=== PATIENT | female | born 1925 | race Caucasian/White ===

== ENCOUNTER 2016-02-24 23:40 | Inpatient (IN) | payer MEDICARE, OTHER ==
--- NOTE | 2016-02-25 00:10 | ERNOTE ---
Medical Problem HPI - Narrative Date of Service: 02/25/16 - General Chief Complaint: General Assessment Time Seen by Provider: 02/25/16 00:10 Source: patient, EMS notes reviewed, assisted records Exam Limitations: no limitations - Immun/Allergies/Home Medications Immunizations: IMMUNIZATION HX Immunizations Up to Date Yes History of Influenza Vaccine Yes Hx Pneumococcal Vaccination Yes reviewed medication and immunizations per assisted list. Allergies/Adverse Reactions: Allergies alendronate sodium [From Fosamax] Adverse Reaction (Intermediate, Verified 02/16 22:02) ESOPHAGUS IRRITATION metoclopramide HCl [From Reglan] Adverse Reaction (Intermediate, Verified 22:02) TREMOR Penicillins Adverse Reaction (Mild, Verified 02/17/16 22:02) RASH Home Medications: HOME MEDICATIONS Acetaminophen [Tylenol] 650 mg PO Q6H PRN 02/17/16 [Last Taken Unknown] Brinzolamide [Azopt 1% Ophthalmic Suspension] 1 drop EACHEYE TID 02/17/16 [Last Taken Unknown] Calcium Carbonate [Tums] 500 mg PO DAILY 02/17/16 [Last Taken Unknown] Carvedilol [Coreg] 6.25 mg PO BID 02/17/16 [Last Taken Unknown] Cholecalciferol (Vitamin D3) [Vitamin D3] 2,000 unit PO DAILY 02/17/16 [Last Taken Unknown] DULoxetine HCL [Cymbalta] 30 mg PO DAILY 02/17/16 [Last Taken Unknown] Digoxin [Lanoxin] 0.125 mg PO DAILY 02/17/16 [Last Taken Unknown] Fluticasone Propionate [Flonase Allergy Relief] 2 sprays NS DAILY 02/17/16 [ Last Taken Unknown] Furosemide [Lasix] 80 mg PO TID 02/17/16 [Last Taken Unknown] Hydrochlorothiazide [Hydrodiuril] 25 mg PO TID 02/17/16 [Last Taken Unknown] Latanoprost [Xalatan] 1 drop EACHEYE HS 02/17/16 [Last Taken Unknown] Multivitamin/Ferrous Sulfate [One-Daily Aqgsl-Emg-Sauw Tab] 1 tab PO DAILY 02/16 [Last Taken Unknown] Poly Iron Forte Cap 1 tab PO BID 02/17/16 [Last Taken Unknown] Polyethylene Glycol 3350 [Miralax] 17 gm PO DAILY PRN 02/17/16 [Last Taken Unknown] Simvastatin [Zocor] 20 mg PO HS 02/17/16 [Last Taken Unknown] Spironolactone [Aldactone] 1 tab PO TID 02/17/16 [Last Taken Unknown] Albuterol Sulfate [Albuterol Sulfate 2.5 MG/0.5ML] 2.5 mg IH TIDRT vial.neb [Last Taken Unknown] Aspirin [Aspirin EC] 81 mg PO DAILY #1 tablet. 02/18/16 [Last Taken Unknown] - Pain Score Pain Score #1 Pain Score: 1 - minimal pain despite recent fall - History of Present History Narrative: Patient here via EMS for evaluation of wooziness, weakness and fall yesterday with injury / superficial skin tear to the right elbow. Patient with nausea, generalized weakness, no active chest pain, neck pain, hip pain or knee pain. EKG reviewed done at 00:19 rate of 46, first degree AV block, atrial fibrillation and compared with prior from 02/16 afib with rate of [address] twave changes Date (Duration): 02/24/16 Time (Timing): 20:00 Timing: getting worse Severity: moderate Modifying Factors - (Improves): Present: movement, rest Modifying Factors - (Worsens): Present: other - unclear why she is worsening, known chronic kidney disease had recent worsening renal function Review of Systems - Review of Systems Constitutional: Present: recent illness, weakness, fatigue, malaise EYE: Present: no symptoms reported ENT: Present: no symptoms reported, other - dry mouth Respiratory: Present: no symptoms reported Cardiology: Present: no symptoms reported Gastrointestinal/Abdominal: Present: no symptoms reported - except bowels don't move, no melena , constipation Genitourinary: Present: no symptoms reported Musculoskeletal: Present: joint pain - right elbow s/p skin tear an contusion Neurological: Present: no symptoms reported, dizziness/light-headedness, weakness, pre-existing deficit. Absent: emotional problems, headache Endocrine: Present: no symptoms reported Hematologic/Lymphatic: Present: easy bruising, easy bleeding Psych: Present: no symptoms reported All Other Systems: All systems neg except as marked - Narrative Narrative: all social history, family history, and past medical history reviewed as recorded. - Patient's Past Medical History Patient History - Medical: Arthritis, GERD, Osteoporosis, Rheumatoid Arthritis Patient History - Cardiac/Respiratory: No pertinent hx, Atrial Fibrillation, CVA /Stroke, Deep Vein Thrombosis, Hypertension, Pulmonary Embolism, Other - pulmonary hypertension Patient History - Cancer: No Hx of Cancer Patient History - Surgical Procedures: Appendectomy, Cholecystectomy, Colonoscopy, EGD, Hysterectomy, Other Patient History - Other: None LMP (females 10-50): Menopausal - Family History Father Family History - Medical: , No pertinent hx Family History - Cancer: No Hx of cancer Mother Family History - Medical: , No pertinent hx Family History - Cardiac/Respiratory: No pertinent hx Family History - Cancer: No Hx of cancer - Social History Living Situations: assisted living Does anyone smoke in the home?: No Smoking Status: Never smoker Alcohol Use: none Drug Use: none - Immunizations Immunizations Up to Date: Yes - Td current per assisted record Hx Pneumococcal Vaccination: More Information Required to Determine History of Influenza Vaccine: More Information Required to Determine ED Progress - Results and Orders Patient's Lab Results:: I have reviewed the patient's lab results. Results and Orders: Critical potassium of 1.9, elevated BNP & hyponatremia potassium will be replaced both orally and IV KCL 10 meq x 2 IV bags, she has fragile veins will need IV fluids running at tko and running KCL at SLOWER rate of 50 ml per hr. - Vital Signs Patient's Vital Signs:: I have reviewed the patient's vital signs. Vital Signs: Vital Signs 02/24/16 23:41 Pulse Rate 48 L Respiratory 16 Rate Blood Pressure 114/41 O2 Sat by Pulse 97 Oximetry - EKG EKG read: Interp. by me - X-Ray X-Ray #1 X-Ray: chest Interpretation: Interp. by me, Reviewed by me X-ray Comments: report noted no acute change from prior ekg no acute ijfiltrate. Cardiac silhouette enlarged. - Progress/Reassessment Chief Complaint: General Assessment Progress:: Improved - Transfer of Care Expected Disposition: Admit - case Discussed with Trinity Palumbo for admission orders. Plan - Plan Plan: 1. Patient has severe hypokalemia, she is will need to be admitted to stabilize this and her other electrolyte abnormalities. 2. Severe hyponatremia, 3. chronic heart failure 4. Acute on chronic kidney failure Departure - Departure Clinical Impression: Hyponatremia syndrome, Hypokalemia, Acute on chronic renal insufficiency, Diastolic dysfunction Condition: Fair
[2016-02-25 00:25] LABS: Hematocrit 32.3 % (37.0-47.0); Hemoglobin 11.6 gm/dL (12.5-16.0); Mean Cell Volume 84.6 fl (78-100); Mean Corpuscular Hemoglobin 30.4 pg (27-31); Mean Corpuscular Hgb Conc 35.9 g/dl (32-36); Mean Platelet Volume 8.9 fl (6.0-9.5); Neutrophil # 5.2 K/mm3 (1.3-6.0); Neutrophil % 65.1 % (42-75.0); Platelet Count 249 K/mm3 (150-450); Red Blood Count 3.82 M/mm3 (4.2-5.4); Red Cell Distribution Width 15.2 % (11.5-14.0)
[2016-02-25 00:42] LABS: Prothrombin Time (Patient) 18.4 Seconds (9.4-11.4)
[2016-02-25 00:43] LABS: INR 1.77 INR (0.90-1.10); Partial Thrombolplastin Time 46.5 Seconds (24-32)
[2016-02-25 00:51] LABS: Troponin I 0.063 ng/ml (0.00-0.10)
[2016-02-25 00:55] LABS: Albumin * 3.1 gm/dl (3.4-5.0); Anion Gap 11.4 mmol/L (6.8-13.8); Bilirubin, Total 1.5 mg/dL (0.0-1.1); Ca. Corrected For Albumin 9.5 mg/dL (8.4-10.2); Calcium * 9.1 mg/dL (7.9-10.9); Carbon Dioxide 32.5 mmol/L (24-32.6); Digoxin 1.2 ng/mL (0.5-2.0)
[2016-02-25 00:56] LABS: Potassium 1.9 mmol/L (3.4-4.6)
[2016-02-25] MEDS ORDERED: POTASSIUM CHLORIDE 20 MEQ TABLET.SA PO ONE (01:13)
[2016-02-25] MEDS ORDERED: POTASSIUM CHLORIDE 100 ML IV ONE ×2 (01:16→04:30)
[2016-02-25] MEDS ORDERED: NORMAL SALINE 1,000 ML IV PRN (01:17)
[2016-02-25] MEDS ORDERED: POTASSIUM CHLORIDE 20 MEQ TABLET.SA ONE (01:23)
[2016-02-25] MEDS ORDERED: POLYETHYLENE GLYCOL 3350 119 GM BTL PO PRN (04:51)
--- NOTE | 2016-02-25 05:26 | HP ---
<Carmel Palumbo - Last Filed: 02/25/16 06:37> Chief Complaint - Chief Complaint Date of Service: 02/25/16 Time of Service: 04:44 Chief Complaint: weakness History of Present Illness: Pt is an 89 year old WF pt of Dr. Gonzalez who presented to [facility] ER with complaints of weakness. PMH is significant for: afib, CRF, pulm HTN, GERD, HTN, RA, OP, and previous DVT. Patient experienced a fall yesterday and suffered a right elbow skin tear. She states this was due to her being so weak. Denies any other associated injuries from this fall. She also states that she is SOB, however she displays no s/s of any respiratory distress. Denies fever/chills, recent illness, n/v/d, CP, or palpations. In the ER work up revealed EKG with rate of 46, first degree AVB, atrial fibrillation. Laboratory findings were significant for: K+ 1.9, H/H 11.6/32.3, Na+ 125, Chloride 83, BUN/Creat 57/ 1.90. She will be admitted for IV potassium and sodium replacement, serial labs , continuous cardiac monitoring. - Patient's Past Medical History Patient History - Medical: Arthritis, GERD, Osteoporosis, Rheumatoid Arthritis Patient History - Cardiac/Respiratory: No pertinent hx, Atrial Fibrillation, CVA /Stroke, Deep Vein Thrombosis, Hypertension, Pulmonary Embolism, Other - pulmonary hypertension Patient History - Cancer: No Hx of Cancer Patient History - Surgical Procedures: Appendectomy, Cholecystectomy, Colonoscopy, EGD, Hysterectomy, Other Patient History - Other: None LMP (females 10-50): Menopausal - Family History Father Family History - Medical: , No pertinent hx Mother Family History - Medical: , No pertinent hx - Social History Living Situations: assisted living Does anyone smoke in the home?: No Smoking Status: Never smoker Have you smoked in the past 12 months: No Do you dip or chew tobacco: No Patient requests Smoking Cessation Consult: No Initiate information on Smoking Cessation: No Alcohol Use: none Drug Use: none - Immunizations Immunizations Up to Date: Yes Hx Pneumococcal Vaccination: Yes History of Influenza Vaccine: Yes Review Of Systems (GEN) - Review of Systems Generalized/Overall Review: Present: Weakness, Fatigue EENTM: Present: No Symptoms Reported Respiratory: Present: Shortness of Breath - pt resting comfortably in be without s/s of respiratory distress. Oxygen saturation >93% Cardiac: Present: No Symptoms Reported Abdominal: Present: No Symptoms Reported Genitourinary: Present: No Symptoms Reported Musculoskeletal: Present: No Symptoms Reported Neurological: Present: Weakness Skin: Present: Dryness, Bruising Endocrine: Present: No Symptoms Reported Allergies/Adverse Reactions: Allergies Allergy/AdvReac Type Severity Reaction Status Date / Time alendronate sodium AdvReac Intermediate ESOPHAGUS Verified 02/17/16 22:02 [From Fosamax] IRRITATION metoclopramide HCl AdvReac Intermediate TREMOR Verified 02/17/16 22:02 [From Reglan] Penicillins AdvReac Mild RASH Verified 02/17/16 22:02 Home Medications: HOME MEDICATIONS Acetaminophen [Tylenol] 650 mg PO Q6H PRN 02/17/16 [Last Taken Unknown] Brinzolamide [Azopt 1% Ophthalmic Suspension] 1 drop EACHEYE TID 02/17/16 [Last Taken Unknown] Calcium Carbonate [Tums] 500 mg PO DAILY 02/17/16 [Last Taken Unknown] Carvedilol [Coreg] 6.25 mg PO BID 02/17/16 [Last Taken Unknown] Cholecalciferol (Vitamin D3) [Vitamin D3] 2,000 unit PO DAILY 02/17/16 [Last Taken Unknown] DULoxetine HCL [Cymbalta] 30 mg PO DAILY 02/17/16 [Last Taken Unknown] Digoxin [Lanoxin] 0.125 mg PO DAILY 02/17/16 [Last Taken Unknown] Fluticasone Propionate [Flonase Allergy Relief] 2 sprays NS DAILY 02/17/16 [ Last Taken Unknown] Furosemide [Lasix] 80 mg PO TID 02/17/16 [Last Taken Unknown] Hydrochlorothiazide [Hydrodiuril] 25 mg PO TID 02/17/16 [Last Taken Unknown] Latanoprost [Xalatan] 1 drop EACHEYE HS 02/17/16 [Last Taken Unknown] Multivitamin/Ferrous Sulfate [One-Daily Vmhdd-Pep-Xulm Tab] 1 tab PO DAILY 02/16 [Last Taken Unknown] Poly Iron Forte Cap 1 tab PO BID 02/17/16 [Last Taken Unknown] Polyethylene Glycol 3350 [Miralax] 17 gm PO DAILY PRN 02/17/16 [Last Taken Unknown] Simvastatin [Zocor] 20 mg PO HS 02/17/16 [Last Taken Unknown] Spironolactone [Aldactone] 1 tab PO TID 02/17/16 [Last Taken Unknown] Albuterol Sulfate [Albuterol Sulfate 2.5 MG/0.5ML] 2.5 mg IH TIDRT vial.neb [Last Taken Unknown] Aspirin [Aspirin EC] 81 mg PO DAILY #1 tablet. 02/18/16 [Last Taken Unknown] Exam - Exam Vital Signs: Vital Signs - Last Taken Temp 36.5 C 02/25/16 01:32 Pulse 63 02/25/16 03:20 Resp 16 02/25/16 02:28 BP 119/46 02/25/16 02:28 Pulse Ox 97 RA 02/25/16 02:28 Constitutional: Present: Alert, Oriented x3, Cooperative, No distress, Elderly, Thin and frail ENT Exam: Present: hearing grossly normal, dry mucous membranes Eye Exam: bilateral eye: normal inspection, PERRL Respiratory: Present: chest non-tender, normal breath sounds, no respiratory distress, no accessory muscle use, decreased breath sounds Cardiovascular/Chest: Present: normal peripheral pulses, no chest tenderness, no edema, no murmur, irregularly irregular Peripheral Pulses: dorsalis-pedis (R): 2+, dorsalis-pedis (L): 2+, radial (R): 2 +, radial (L): 2+ Abdomen: Present: Normal bowel sounds, soft, nontender, nondistended Extremity: Present: normal range of motion, non-tender, normal inspection, no pedal edema, no calf tenderness, normal capillary refill Skin Exam: Present: normal color, warm/dry, no cyanosis, other - scattered eccymosis. Skin tear to right elbow Neurologic: Present: alert, normal mood/affect, oriented x 3 Appearance: Present: appropriate appearance, appropriate insight, neat Eye contact: Present: cooperative, good eye contact, normal speech Thoughts: Present: normal thought pattern, no apparent hallucination Diagnostic Studies: Laboratory Results Laboratory Tests 02/25/16 02/25/16 02/25/16 00:15 00:15 00:15 WBC 8.0 Hgb 11.6 L Hct 32.3 L Plt Count 249 PT 18.4 H INR (Anticoag Therapy) 1.77 H PTT ([place]) 46.5 H Sodium 125 L Potassium 1.9 L* D Chloride 83 L BUN 57 H Creatinine 1.90 H BUN/Creatinine Ratio 30.0 H Random Glucose 146 H Total Bilirubin 1.5 H Troponin I 0.063 B-Natriuretic Peptide 3212 H Digoxin 1.2 D Assessment/Plan - Assessment/Plan (1) Hypokalemia Assessment: Pt on 80mg PO lasix daily without any supplementation. From previous labs, looks like it has progressively gone down over the past few days. Will order IV and PO replacement. Place on continuous telemetry to monitor for any arrhythmias , EKG afib with 1*AVB, rate of 46. Dig level within normal limits. Will hold betablockers and dig to prevent further bradycardia while hypokalemic. Hold lasix given acute renal injury. Repeat labs at 0615. -CMP at 0615 -80meq total PO potassium -10meq IV potassium x2 -Continuous telemetry monitoring -Hold Coreg Problem: Acute (2) Hyponatremia Assessment: Pt with worsening hyponatremia over the past three days. 125 on presentation to ER, pt symptomatic with muscle weakness, however no AMS. Unsure etiology, could be from CHF, given this will slowly correct with normal saline at 80ml/hr. BNP 3212 on admission. -MIVF NS with 20Meq KCL @80ml/hr Problem: Acute (3) Acute kidney injury Assessment: Baseline creat around 1.6, admission BUN/Creat 57/1.90. Although elevated from baseline, has improved since January values of 2.0 and above. Likely due to over diuresis. Will gently hydrate with IVF -MIVF NS w 20KCL @80ml/hr -CMP in am -Hold lasix, spironolactone, and HTCZ for now to prevent further kidney damage Problem: Acute (4) A-fib Assessment: Stable. Rate has improved since admission to floor, 64bmp currently. 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 Given hypokalemia, renal impairment, and bradycardia will hold digoxin for now. -Continuous telemetry -Hold dig -Repeat echo Problem: Chronic QualifierTitle: Atrial fibrillation type: chronic Qualified Code(s): I48.2 - Chronic atrial fibrillation (5) GERD (gastroesophageal reflux disease) Assessment: Stable Problem: Chronic (6) HTN (hypertension) Assessment: Stable. Given renal impairment and electrolyte abnormalities will hold hydrochlorthiazide, lasix, and spironolactone to prevent further damage. Monitor fluid status closely given history of CHF. -Hold lasix, HTCZ, and spironolactone -Limit nephrotoxic drugs -VS Q4H Problem: Chronic (7) HLD (hyperlipidemia) Assessment: Stable, continue Zocor 20mg HS Problem: Acute (8) Diastolic dysfunction Assessment: Last echo completed 2013, will need to repeat this admission. -Repeat echo -Strict I/O -Daily wt -SCD to lower extremities Problem: Chronic <Rohan Sandoval - Last Filed: 02/25/16 17:05> Immunizations: IMMUNIZATION HX Immunizations Up to Date Yes: Td current per [facility] record History of Influenza Vaccine More Information Required Hx Pneumococcal Vaccination More Information Required Exam - Exam Vital Signs: Vital Signs - Last Taken Temp 36.3 C L 02/25/16 10:01 Pulse 62 02/25/16 15:00 Resp 16 02/25/16 10:01 BP 109/41 02/25/16 10:01 Pulse Ox 93 02/25/16 10:01 Diagnostic Studies: Laboratory Results WBC 8.0 K/mm3 (4.0-10.5) 02/25/16 00:15 RBC 3.82 M/mm3 (4.2-5.4) L 02/25/16 00:15 Hgb 11.6 gm/dL (12.5-16.0) L 02/25/16 00:15 Hct 32.3 % (37.0-47.0) L 02/25/16 00:15 MCV 84.6 fl (78-100) 02/25/16 00:15 MCH 30.4 pg (27-31) 02/25/16 00:15 MCHC 35.9 g/dl (32-36) 02/25/16 00:15 RDW 15.2 % (11.5-14.0) H 02/25/16 00:15 Plt Count 249 K/mm3 (150-450) 02/25/16 00:15 MPV 8.9 fl (6.0-9.5) 02/25/16 00:15 Immature Gran % (Auto) 1.40 % (0.001-0.429) H 02/25/16 00:15 Immature Gran # (Auto) 0.11 K/mm3 (0.000-0.0310) H 02/25/16 00:15 Neutrophils % 65.1 % (42-75.0) 02/25/16 00:15 Lymphocytes % 18.6 % (20-51) L 02/25/16 00:15 Monocytes % 14.0 % (0.0-9) H 02/25/16 00:15 Eosinophils % 0.7 % (0.0-3.0) 02/25/16 00:15 Basophils % 0.2 % (0.0-1.0) 02/25/16 00:15 Nucleated RBC % 0.0 k/mm3 (0-1) 02/25/16 00:15 Neutrophils # 5.2 K/mm3 (1.3-6.0) 02/25/16 00:15 Lymphocytes # 1.5 k/mm3 (1.5-3.5) 02/25/16 00:15 Monocytes # 1.1 k/mm3 (0.0-1.0) H 02/25/16 00:15 Eosinophils # 0.1 k/mm3 (0.0-0.7) 02/25/16 00:15 Absolute Basophils 0.0 k/mm3 (0.0-0.1) 02/25/16 00:15 PT 18.4 Seconds (9.4-11.4) H 02/25/16 00:15 INR (Anticoag Therapy) 1.77 INR (0.90-1.10) H 02/25/16 00:15 PTT (Ni) 46.5 Seconds (24-32) H 02/25/16 00:15 Sodium 127 mmol/L (132-142) L 02/25/16 05:28 Plasma Sodium 127 mmol/L (130-142) L 02/25/16 05:28 Potassium 3.9 mmol/L (3.4-4.6) D 02/25/16 11:55 Chloride 84 mmol/L (97-106) L 02/25/16 05:28 Carbon Dioxide 35.5 mmol/L (24-32.6) H 02/25/16 05:28 Anion Gap 10.6 mmol/L (6.8-13.8) 02/25/16 05:28 BUN 57 mg/dL (3-23) H 02/25/16 05:28 Creatinine 1.95 mg/dL (0.4-1.4) H 02/25/16 05:28 Est GFR (Non-Af Amer) 26 mL/min (60-130) L 02/25/16 05:28 BUN/Creatinine Ratio 29.2 (9.0-21.6) H 02/25/16 05:28 Random Glucose 121 mg/dL (70-110) H 02/25/16 05:28 Calcium 9.3 mg/dL (7.9-10.9) 02/25/16 05:28 Calcium Adj for Albumin 9.5 mg/dL (8.4-10.2) 02/25/16 05:28 Total Bilirubin 1.5 mg/dL (0.0-1.1) H 02/25/16 05:28 AST 19 U/L (0-48) 02/25/16 05:28 ALT 16 U/L (19-67) L 02/25/16 05:28 Alkaline Phosphatase 74 U/L (50-170) 02/25/16 05:28 Troponin I 0.064 ng/ml (0.00-0.10) 02/25/16 05:28 B-Natriuretic Peptide 3212 pg/mL (5-550) H 02/25/16 00:15 Total Protein 7.0 gm/dL (6.2-8.2) 02/25/16 05:28 Albumin 3.3 gm/dl (3.4-5.0) L 02/25/16 05:28 Digoxin 1.2 ng/mL (0.5-2.0) D 02/25/16 00:15 Assessment/Plan - Narrative Narrative: The problem of hospitalization is low sodium and potassium, due to diuretics, used for fairly severe lower extremity edema, worse in the right leg. She had a DVT in right leg previously. She has diastolic dysfunction and pulmonary hypertension, but hasn't had an echo for four years. The edema in the right leg and foot is severe enough that it leads to poorly healing ulcers from time to time. We have temporarily stopped her diuretics and are replacing sodium and potassium while monitoring heart rhythm. She has been on digoxin and a beta teddy for rate control. We will restart the lanoxin and follow labs. I estimate a hospital stay of another 1-2 days. I directly supervised all of Carmel Palumbo's care for this patient.
[2016-02-25 06:20] LABS: Albumin * 3.3 gm/dl (3.4-5.0); Anion Gap 10.6 mmol/L (6.8-13.8); BUN/Creatinine Ratio 29.2 (9.0-21.6); Bilirubin, Total 1.5 mg/dL (0.0-1.1); Ca. Corrected For Albumin 9.5 mg/dL (8.4-10.2); Calcium * 9.3 mg/dL (7.9-10.9); Carbon Dioxide 35.5 mmol/L (24-32.6); Potassium 3.1 mmol/L (3.4-4.6); Troponin I 0.064 ng/ml (0.00-0.10)
[2016-02-25] MEDS ORDERED: ALBUTEROL SULFATE 2.5 MG/0.5 ML VIAL.NEB IH PRN (06:28)
[2016-02-25] MEDS ORDERED: ALBUTEROL SULFATE 2.5 MG/0.5 ML VIAL.NEB IH SCH (07:00)
[2016-02-25] MEDS: POTASSIUM CHLORIDE 40 MEQ in NORMAL SALINE 1,000 ML IV SCH ×2 (07:37→20:16)
[2016-02-25] MEDS: FE PS CMPLX/CYANOCOBALAMIN/FA 1 CAP CAPSULE PO SCH ×2 (08:39→21:20)
[2016-02-25] MEDS: BRINZOLAMIDE 100 DROP BTL EACHEYE SCH ×3 (08:39→16:30)
[2016-02-25] MEDS: CALCIUM CARBONATE 500 MG TAB.CHEW PO SCH (08:39)
[2016-02-25] MEDS: ASPIRIN 81 MG TABLET.DR PO SCH (08:39)
[2016-02-25] MEDS: MULTIVIT-MIN/FA/LYCOPEN/LUTEIN 1 TAB TABLET PO SCH (08:39)
[2016-02-25] MEDS: DULoxetine HCL 30 MG CAPSULE.SA PO SCH (08:40)
[2016-02-25] MEDS: FLUTICASONE PROPIONATE 120 SPRAY INHALER NS SCH (08:40)
[2016-02-25] MEDS: CHOLECALCIFEROL 1,000 UNIT CAPSULE PO SCH (08:40)
[2016-02-25] MEDS ORDERED: WARFARIN SODIUM 5 MG TABLET PO SCH (17:00)
[2016-02-25] MEDS ORDERED: LATANOPROST 25 DROP BTL EACHEYE SCH (21:00)
[2016-02-25] MEDS ORDERED: SIMVASTATIN 20 MG TABLET PO SCH (21:00)
[2016-02-26 05:40] LABS: Hematocrit 32.7 % (37.0-47.0); Hemoglobin 10.8 gm/dL (12.5-16.0); Mean Cell Volume 90.6 fl (78-100); Mean Corpuscular Hemoglobin 29.9 pg (27-31); Neutrophil # 4.3 K/mm3 (1.3-6.0); Neutrophil % 62.8 % (42-75.0); Platelet Count 247 K/mm3 (150-450); Red Blood Count 3.61 M/mm3 (4.2-5.4); Red Cell Distribution Width 15.9 % (11.5-14.0); White Blood Count 6.9 K/mm3 (4.0-10.5)
[2016-02-26 05:57] LABS: Prothrombin Time (Patient) 15.5 Seconds (9.4-11.4)
[2016-02-26 06:06] LABS: Albumin * 2.9 gm/dl (3.4-5.0); Anion Gap 11.8 mmol/L (6.8-13.8); BUN/Creatinine Ratio 29.9 (9.0-21.6); Bilirubin, Total 0.6 mg/dL (0.0-1.1); Ca. Corrected For Albumin 9.6 mg/dL (8.4-10.2); INR 1.49 INR (0.90-1.10); Potassium 3.8 mmol/L (3.4-4.6); Total Protein 6.5 gm/dL (6.2-8.2)
--- NOTE | 2016-02-26 07:58 | DS ---
(1) Falls Problem: Acute Qualifiers: Encounter type: initial encounter Qualified Code(s): W19.XXXA - Unspecified fall, initial encounter (2) Peripheral edema Problem: Chronic (3) Acute on chronic renal insufficiency Problem: Resolved (4) HLD (hyperlipidemia) Problem: Chronic Qualifiers: Hyperlipidemia type: unspecified Qualified Code(s): E78.5 - Hyperlipidemia , unspecified (5) Hypokalemia Problem: Resolved (6) Hyponatremia Problem: Resolved (7) Diastolic dysfunction Problem: Chronic (8) Dehydration Problem: Resolved (9) Weakness Problem: Acute (10) A-fib Problem: Chronic Qualifiers: Atrial fibrillation type: chronic Qualified Code(s): I48.2 - Chronic atrial fibrillation (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 (12) Diabetes mellitus Problem: Chronic Qualifiers: Diabetes mellitus type: type 2 Diabetes mellitus complication status: without complication Diabetes mellitus tank terminal gauger insulin use: without tank terminal gauger use Qualified Code(s): E11.9 - Type 2 diabetes mellitus without complications (13) GERD (gastroesophageal reflux disease) Problem: Chronic Qualifiers: Esophagitis presence: without esophagitis Qualified Code(s): K21.9 - Gastro -esophageal reflux disease without esophagitis (14) HTN (hypertension) Problem: Chronic Qualifiers: Hypertension type: essential hypertension (15) Macular degeneration Problem: Chronic (16) Osteoarthritis Problem: Chronic Qualifiers: Osteoarthritis location: unspecified site Osteoarthritis type: primary Qualified Code(s): M19.91 - Primary osteoarthritis, unspecified site (17) Osteoporosis Problem: Chronic (18) Pulmonary hypertension Problem: Chronic (19) CVA (cerebral vascular accident) Problem: Resolved Qualifiers: CVA mechanism: embolism Precerebral and cerebral artery: unspecified cerebral artery Qualified Code(s): 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 Beta teddy held. Fluid and electrolytes given. Heart rhythm remained stable. 1+ pedal edema at time of discharge, right worse than left. Hyponatremia, Hypokalemia, ARF resolved at time of discharge. Will resume diuretics at lower dose and monitor. She had a non hemorrhagic CVA during her last admission, and so we still need to obtain an outpatient brain MRI and EEG. Procedures Performed: none Discharge Disposition: [facility] Disposition: [facility] Condition: Fair Discharge Activity: Activity as tolerated Discharge Diet: Consistent carbs, Low salt Discharge Level of Care:: SNF - [facility] Therapy: Physicial Therapy, Occupation Therapy Referrals: Rohan Sandoval MD [Primary Care Provider] - Problem Oriented Discharge Instructions to Patient/Family: Fall Prevention in the Home, [id number], Fall Prevention in Hospitals, Adult Additional Patient Instructions (free text): Resume care at [facility] at discharge. Call and fax discharge info and orders. CBC BMP Protime in 3 days. Knee high compression stockings unless bathing. Prescriptions (Any new or edited meds): Furosemide [Lasix] 80 mg PO DAILY #1 tablet Potassium Chloride 8 meq PO DAILY #1 cap Spironolactone [Aldactone] 1 tab PO BID #1 tablet Complete Home Medications List: Complete Home Medication List: Acetaminophen [Tylenol] 650 mg PO Q6H PRN 02/17/16 Brinzolamide [Azopt 1% Ophthalmic Suspension] 1 drop EACHEYE TID 02/17/16 Calcium Carbonate [Tums] 500 mg PO DAILY 02/17/16 Cholecalciferol (Vitamin D3) [Vitamin D3] 2,000 unit PO DAILY 02/17/16 DULoxetine HCL [Cymbalta] 30 mg PO DAILY 02/17/16 Digoxin [Lanoxin] 0.125 mg PO DAILY 02/17/16 Fluticasone Propionate [Flonase Allergy Relief] 2 sprays NS DAILY 02/17/16 Latanoprost [Xalatan] 1 drop EACHEYE HS 02/17/16 Multivitamin/Ferrous Sulfate [One-Daily Vhbxb-Fee-Tcat Tab] 1 tab PO DAILY 02/16 Poly Iron Forte Cap 1 tab PO BID 02/17/16 Polyethylene Glycol 3350 [Miralax] 17 gm PO DAILY PRN 02/17/16 Simvastatin [Zocor] 20 mg PO HS 02/17/16 Aspirin [Aspirin EC] 81 mg PO DAILY #1 tablet. 02/18/16 Furosemide [Lasix] 80 mg PO DAILY #1 tablet 02/26/16 Potassium Chloride 8 meq PO DAILY #1 cap 02/26/16 Spironolactone [Aldactone] 1 tab PO BID #1 tablet 02/26/16 Warfarin Sodium [Coumadin] 5 mg PO DAILY@1700 tablet 02/26/16
[2016-02-26] MEDS: CALCIUM CARBONATE 500 MG TAB.CHEW PO SCH (08:49)
[2016-02-26] MEDS: ASPIRIN 81 MG TABLET.DR PO SCH (08:49)
[2016-02-26] MEDS: FE PS CMPLX/CYANOCOBALAMIN/FA 1 CAP CAPSULE PO SCH (08:49)
[2016-02-26] MEDS: CHOLECALCIFEROL 1,000 UNIT CAPSULE PO SCH (08:49)
[2016-02-26] MEDS: MULTIVIT-MIN/FA/LYCOPEN/LUTEIN 1 TAB TABLET PO SCH (08:49)
[2016-02-26] MEDS: FLUTICASONE PROPIONATE 120 SPRAY INHALER NS SCH (08:50)
[2016-02-26] MEDS: DULoxetine HCL 30 MG CAPSULE.SA PO SCH (08:50)
[2016-02-26] MEDS: BRINZOLAMIDE 100 DROP BTL EACHEYE SCH ×2 (08:51→13:42)
[2016-02-26] MEDS: POTASSIUM CHLORIDE 40 MEQ in NORMAL SALINE 1,000 ML IV SCH (08:55)
[2016-02-26] MEDS ORDERED: DIGOXIN 0.125 MG TABLET PO SCH (09:00)
[2016-02-26 10:13] VITALS: BP 98/46
--- NOTE | 2016-02-29 12:25 | ECHO ---
This report is available in the EMR
== END 2016-02-26 15:00 | DRG 65 ==
LOC: ER 23:40 → MS 02-25 01:30 → OBSVTOIN 02-25 06:40
PROVIDERS: ADMIT Nurse Practitioner Gerontology; ATTEND Allergy & Immunology
DX: I63.40 Cerebral infarction due to embolism of unspecified cerebral artery (principal); N17.9 Acute kidney failure, unspecified; I50.32 Chronic diastolic (congestive) heart failure; E87.1 Hypo-osmolality and hyponatremia; E86.0 Dehydration; E87.6 Hypokalemia; K21.9 Gastro-esophageal reflux disease without esophagitis; I12.9 Hypertensive chronic kidney disease with stage 1 through stage 4 chronic kidney disease, or unspecified chronic kidney disease; I27.2 Other secondary pulmonary hypertension; N18.9 Chronic kidney disease, unspecified; E11.9 Type 2 diabetes mellitus without complications; E78.5 Hyperlipidemia, unspecified; I48.2 Chronic atrial fibrillation; Z79.82 Long term (current) use of aspirin

== ENCOUNTER 2016-04-01 10:43 | Emergency (ER) | payer MEDICARE, OTHER ==
[2016-04-01] MEDS ORDERED: NORMAL SALINE 1,000 ML IV PRN (10:56)
--- OUTSIDE RECORDS SUMMARY | 2016-04-01 11:12 | XMS REPORT | Continuity of Care Document ---
:1925 Author Organization [facility] ([facility]) [place] [address] Phone [phone] Care Team Providers Name Role Phone SarahNilsonRohan Steward Primary Care Provider [phone] Source Comments This disclosure is being made pursuant to the Care Everywhere program, applicable federal and state laws, and may not contain all informaitonavailable regarding this patient.[facility] ([facility]) Active Allergies and Adverse Reactions Allergen Noted Date Severity Reactions Comments Alendronate 09/25/2012 OTHER Irritation to the esophagus Metoclopramide Hcl 09/25/2012 OTHER tremors Penicillins 11/04/2008 OTHER Does not know Current Medications Prescription Sig. Disp. Refills Start Date End Date Status escitalopram (LEXAPRO) Take 5 mg by mouth Active 10 mg tablet daily. Cholecalciferol, Take 2,000 Units by Active Vitamin D3, (VITAMIN mouth daily. D3) 2,000 unit cap topiramate 50 mg Take 50 mg by mouth Active tablet at bedtime. brinzolamide (AZOPT) 1 instill 1 Drop onto Active % ophthalmic both eyes 2 times suspension daily. IRON POLYSACCHARIDES Take 1 Cap by mouth 2 Active COMPLEX (FERREX 150 times daily. PO) rivastigmine (EXELON) apply 9.5 mg Active 9.5 mg/24 hour patch topically daily. atorvastatin 10 mg Take 1 Tab by mouth 30 Tab 2 03/02/2012 Active tablet daily. Indications: MIXED HYPERLIPIDEMIA warfarin 1 mg tablet Take 3 Tabs by mouth 90 Tab 4 03/03/2012 Active every evening. Indications: PREVENT THROMBOEMBOLISM WITH CHRONIC ATRIAL FIBRILLATION latanoprost 0.005 % 1 Drop every evening. Active ophthalmic solution pantoprazole 40 mg EC Take 40 mg by mouth Active tablet daily. rOPINIRole (REQUIP) Take 0.5 mg by mouth Active 0.5 mg tablet 2 times daily. potassium chloride 20 Take 1 Tab by mouth 2 60 Tab 11 06/29/2012 Active mEq tablet times daily. Indications: HYPOKALEMIA PREVENTION calcium carbonate (500 Take 500 mg by mouth Active mg Ca) 1250 mg capsule daily. ondansetron 8 mg Take 8 mg by mouth Active tablet every 6 hours as needed. carvedilol 12.5 mg Take 12.5 mg by mouth Active tablet 2 times daily with meals. carvedilol 6.25 mg Take 6.25 mg by mouth Active tablet 2 times daily with meals. HYDROcodone-acetaminop Take 1 Tab by mouth Active hen 5-325 mg per every 8 hours as tablet needed. furosemide 40 mg Take 1.5 Tabs by 90 Tab 11 06/18/2013 Active tablet mouth 2 times daily. Indications: DIASTOLIC HEART FAILURE Active Problems Problem Noted Date Chronic diastolic heart failure 06/29/2012 CKD (chronic kidney disease), stage II 06/29/2012 Acute diastolic congestive heart failure 03/03/2012 Influenza 02/25/2012 Laryngitis with influenza, acute 02/25/2012 Atrial fibrillation 02/25/2012 H/O: CVA (cardiovascular accident) 02/25/2012 Non-ST elevation myocardial infarction (NSTEMI) 02/25/2012 Shortness of breath 02/23/2012 Kidney injury 02/23/2012 Abnormal mammogram, unspecified 08/11/2005 Diffuse cystic mastopathy 11/14/2001 Resolved Problems Problem Noted Date Resolved Date Dysphagia 02/27/2012 02/27/2012 Social History Tobacco Use Types Packs/Day Years Used Date Never Smoker Smokeless Tobacco: Never Used Alcohol Use Drinks/Week oz/Week Comments No Last Filed Vital Signs Vital Sign Reading Time Taken Blood Pressure 134/71 06/18/2013 10:12 AM CDT Pulse 86 06/18/2013 10:12 AM CDT Temperature 37.9 C (100.3 F) 03/03/2012 11:46 AM BRANCH ACCOUNT EXECUTIVE Respiratory Rate 18 03/03/2012 11:50 AM BRANCH ACCOUNT EXECUTIVE Height 1.575 m (5' 2.01") 09/25/2012 3:24 PM CDT Weight 57.2 kg (126 lb 1.7 oz) 06/18/2013 10:12 AM CDT Body Mass Index 23.06 06/18/2013 10:12 AM CDT Oxygen Saturation 97% 06/18/2013 10:12 AM CDT Plan of Care Health Maintenance Due Date Last Done Comments Hepatitis B Vaccine (1 of 3 - Primary 1925 Series) Tdap Vaccine 1937 Td Vaccine 1944 Zoster Vaccine 1986 Pneumococcal Vaccine (1 of 2 - PCV13) 05/07/1991 Influenza Vaccine: Seasonal (#1) 09/21/2015 Lipid Disorder Screening 06/18/2018 06/18/2013, 06/29/2012, 02/26/2012 Results from Last 3 Months Not on file
--- OUTSIDE RECORDS SUMMARY | 2016-04-01 11:12 | XMS REPORT | Continuity of Care Document ---
:1925 Author Organization [facility] [place] [address] Care Team Providers Name Role Phone David Faria Primary Care Provider [phone] Source Comments This disclosure is being made pursuant to the COINPLUS program and maynot contain all information available regarding this patient.[facility] Active Allergies and Adverse Reactions Not on File Current Medications Be aware that medications may not be up to date as of this document. Alwaysverify current medications with the patient. Not on file Active Problems Not on file Most Recent Encounters Date Type Specialty Providers Description 03/25/2016 Scanned Document Family Medicine David Faria, DO Social History Tobacco Use Types Packs/Day Years Used Date Never Assessed Last Filed Vital Signs Vital Sign Reading Time Taken Blood Pressure 114/66 04/05/2012 2:28 PM DRUPAL PROGRAMMER Pulse 86 04/05/2012 2:28 PM DRUPAL PROGRAMMER Temperature 36.8 C (98.2 F) 04/05/2012 2:28 PM DRUPAL PROGRAMMER Respiratory Rate 20 04/05/2012 2:28 PM DRUPAL PROGRAMMER Height 1.626 m (5' 4") 03/08/2012 1:53 PM DRUPAL PROGRAMMER Weight 70.31 kg (155 lb 0.1 oz) 03/08/2012 1:53 PM DRUPAL PROGRAMMER Body Mass Index 26.59 03/08/2012 1:53 PM DRUPAL PROGRAMMER Oxygen Saturation - - Plan of Care Health Maintenance Due Date Last Done Comments Retired-Pertussis Vaccine Adult 1944 Retired-Tetanus Vaccine Adult 1944 Well Adult Visit 1976 Zoster Vaccine 60+ 1986 Bone Density 05/07/1991 Retired-Pneumococcal 23 Vaccine-65+ yo 05/07/1991 Retired-INFLUENZA VACCINE 10/21/2014 Results from Last 3 Months Not on file
[2016-04-01 11:15] LABS: Hematocrit 32.7 % (37.0-47.0); Hemoglobin 10.6 gm/dL (12.5-16.0); Mean Cell Volume 92.1 fl (78-100); Mean Corpuscular Hemoglobin 29.9 pg (27-31); Mean Corpuscular Hgb Conc 32.4 g/dl (32-36); Mean Platelet Volume 8.3 fl (6.0-9.5); Neutrophil # 8.4 K/mm3 (1.3-6.0); Platelet Count 285 K/mm3 (150-450); Red Blood Count 3.55 M/mm3 (4.2-5.4); White Blood Count 10.9 K/mm3 (4.0-10.5)
[2016-04-01 11:39] LABS: Urine Bilirubin Negative (NEGATIVE); Urine Blood Negative /ul (NEGATIVE); Urine Ketone Negative (NEGATIVE); Urine Nitrite Negative (NEGATIVE); Urine Protein Negative (NEGATIVE); Urine Urobilinogen Normal (NORMAL); Urine pH 6.5 pH (5.0-7.0)
[2016-04-01 11:45] LABS: Anion Gap 10.6 mmol/L (6.8-13.8); BUN/Creatinine Ratio 16.1 (9.0-21.6); Bilirubin, Total 0.5 mg/dL (0.0-1.1); Ca. Corrected For Albumin 9.8 mg/dL (8.4-10.2); Calcium * 9.3 mg/dL (7.9-10.9); Carbon Dioxide 30.5 mmol/L (24-32.6); Potassium 4.1 mmol/L (3.4-4.6); Total Protein 7.2 gm/dL (6.2-8.2)
[2016-04-01] MEDS ORDERED: DIATRIZOATE MEGLU/DIATRIZO SOD 30 ML BTL ONE (11:53)
[2016-04-01] MEDS ORDERED: DIATRIZOATE MEGLU/DIATRIZO SOD 30 ML BTL PO ONE (12:00)
[2016-04-01 12:02] LABS: Urine Appearance Slightly Cloudy; Urine Bacteria None Seen; Urine Color Yellow; Urine RBC None Seen /hpf (0-5); Urine WBC None Seen /hpf (0-5)
[2016-04-01 14:54] LABS: Prothrombin Time (Patient) 44.2 Seconds (9.4-11.4)
[2016-04-01 14:55] LABS: INR 4.25 INR (0.90-1.10)
--- NOTE | 2016-04-01 15:09 | ERNOTE ---
Abdominal HPI - Narrative Date of Service: 04/01/16 - General Chief Complaint: Abdominal Pain Time Seen by Provider: 04/01/16 10:48 Source: patient Exam Limitations: no limitations - Immun/Allergies/Home Medications Immunizatons: IMMUNIZATION HX Immunizations Up to Date Yes History of Influenza Vaccine Yes Hx Pneumococcal Vaccination Yes Allergies/Adverse Reactions: Allergies alendronate sodium [From Fosamax] Adverse Reaction (Intermediate, Verified 04/01 11:20) ESOPHAGUS IRRITATION metoclopramide HCl [From Reglan] Adverse Reaction (Intermediate, Verified 11:20) TREMOR Penicillins Adverse Reaction (Mild, Verified 04/01/16 11:20) RASH Home Medications: HOME MEDICATIONS Acetaminophen [Tylenol] 650 mg PO Q6H PRN 02/17/16 [Last Taken Unknown] Brinzolamide [Azopt 1% Ophthalmic Suspension] 1 drop EACHEYE TID 02/17/16 [Last Taken Unknown] Calcium Carbonate [Tums] 500 mg PO DAILY 02/17/16 [Last Taken Unknown] Cholecalciferol (Vitamin D3) [Vitamin D3] 2,000 unit PO DAILY 02/17/16 [Last Taken Unknown] DULoxetine HCL [Cymbalta] 30 mg PO DAILY 02/17/16 [Last Taken Unknown] Digoxin [Lanoxin] 0.125 mg PO DAILY 02/17/16 [Last Taken Unknown] Fluticasone Propionate [Flonase Allergy Relief] 2 sprays NS DAILY 02/17/16 [ Last Taken Unknown] Latanoprost [Xalatan] 1 drop EACHEYE HS 02/17/16 [Last Taken Unknown] Multivitamin/Ferrous Sulfate [One-Daily Cbfzt-Mrv-Kity Tab] 1 tab PO DAILY 02/16 [Last Taken Unknown] Poly Iron Forte Cap 1 tab PO BID 02/17/16 [Last Taken Unknown] Polyethylene Glycol 3350 [Miralax] 17 gm PO DAILY PRN 02/17/16 [Last Taken Unknown] Simvastatin [Zocor] 20 mg PO HS 02/17/16 [Last Taken Unknown] Aspirin [Aspirin EC] 81 mg PO DAILY #1 tablet. 02/18/16 [Last Taken Unknown] Furosemide [Lasix] 80 mg PO DAILY #1 tablet 02/26/16 [Last Taken Unknown] Potassium Chloride 8 meq PO DAILY #1 cap 02/26/16 [Last Taken Unknown] Cephalexin 500 mg PO Q6H 04/01/16 [Last Taken Unknown] Spironolactone [Aldactone] 25 mg PO BID 04/01/16 [Last Taken Unknown] Warfarin Sodium [Jantoven] 5 mg PO DAILY 04/01/16 [Last Taken Unknown] - History of Present Illness Narrative: Patient presents to the ED for abdominal pain. She by report had a recent Dx of strep throat and was placed on antibiotics. Her complaint today is that of abdominal pain. She relates that this pain has been going on for a week. When I ask her if it has been this bad for a week she states "no". When I aks her when it became more intense she relates last evening. She denies CP or SOB. No fever. Worse with palpation and movement. Timing: constant Quality: other - it is difficult for her to rate but she says it "bad" Activities at Onset: none Modifying Factors - (Worsens): Present: rest Associated Symptoms: Present: other - movement Prior Abdominal Problems: Present: none Prior Treatment: Present: currently on antibiotics, other - for strep throat Review of Systems - Review of Systems Constitutional: Absent: fever ENT: Present: other - recent strep but she denies ST Respiratory: Absent: shortness of breath Cardiology: Absent: chest pain Gastrointestinal/Abdominal: Absent: abdominal pain Genitourinary: Absent: dysuria All Other Systems: All systems neg except as marked - Patient's Past Medical History Patient History - Medical: Arthritis, Diabetes Type 2, GERD, Osteoporosis, Rheumatoid Arthritis Patient History - Cardiac/Respiratory: Atrial Fibrillation, Coronary Heart Disease, Hypertension, Hyperlipidemia Patient History - Cancer: No Hx of Cancer Patient History - Surgical Procedures: Appendectomy, Cholecystectomy, Colonoscopy, EGD, Hysterectomy, Other Patient History - Other: None LMP (females 10-50): Menopausal - Family History Father Family History - Medical: , No pertinent hx Mother Family History - Medical: , No pertinent hx Family History - Cardiac/Respiratory: No pertinent hx - Social History Living Situations: group home Abuse History: No History of abuse Psych History: No pertinent hx Does anyone smoke in the home?: No Smoking Status: Never smoker Alcohol Use: none Drug Use: none - Immunizations Immunizations Up to Date: Yes Hx Pneumococcal Vaccination: Yes History of Influenza Vaccine: Yes Physical Exam - Physical Exam General Appearance: Present: alert, no apparent distress Eye Exam: Normal inspection: bilateral Ears, Nose, Throat: Present: normal ENT inspection Neck: Present: normal inspection Respiratory: Present: no respiratory distress, no accessory muscle use, lungs clear Cardiovascular/Chest: Present: other - ireg ireg, mild tachycardia Gastrointestinal/Abdominal: Present: normal bowel sounds, nondistended, other - tenderness right low abdomen, modarate to severe with some mass effect. No guarding or rebound Back Exam: Absent: CVA tenderness (R), CVA tenderness (L) Extremity Exam: Present: other - no calf tenderness Neurological Exam: Present: alert, other - no acute unilateral motor or sensory deficits Skin Exam: Present: other - no acute rash seen ED Progress - Results and Orders Patient's Lab Results:: I have reviewed the patient's lab results. - Vital Signs Patient's Vital Signs:: I have reviewed the patient's vital signs. Vital Signs: Vital Signs 04/01/16 04/01/16 04/01/16 10:47 11:07 12:03 Temperature 36.9 C Pulse Rate 92 85 86 Respiratory 16 20 22 H Rate Blood Pressure 160/64 173/72 165/62 O2 Sat by Pulse 100 93 100 Oximetry 04/01/16 04/01/16 12:33 14:21 Temperature 36.9 C Pulse Rate 82 93 Respiratory 21 H 19 Rate Blood Pressure 185/73 179/74 O2 Sat by Pulse 98 98 Oximetry - CT/Ultrasound CT/Ultrasound Narrative: Official CT report reveiwed. - Progress/Reassessment Chief Complaint: Abdominal Pain Progress Note-Subjective: 04/01/16 15:15 D/W Alden Flowers who feel tertiary care most approproate and JANETH lee. FFP given here. D/W Dr Garcia [facility], ground transfer by EMS to [facility]. Pt agreeable. Departure - Departure Clinical Impression: Abdominal pain, Rectus sheath hematoma Disposition: [facility] Condition: Serious
[2016-04-01] MEDS ORDERED: ONDANSETRON HCL/PF 2 MG/ML VIAL ONE ×2 (15:21→16:20)
[2016-04-01] MEDS ORDERED: ONDANSETRON HCL/PF 2 MG/ML VIAL IV ONE ×2 (15:22→16:21)
[2016-04-01 16:15] VITALS: BP 197/81
== END 2016-04-01 16:41 | disposition short-term general hospital (02) ==
LOC: ER 10:43
PROC: 0T9B70Z Drainage of Bladder with Drainage Device, Via Natural or Artificial Opening (ICD-10-PCS; principal; 2016-04-01)
PROC: 30233K1 Transfusion of Nonautologous Frozen Plasma into Peripheral Vein, Percutaneous Approach (ICD-10-PCS; 2016-04-01)
DX: M79.81 Nontraumatic hematoma of soft tissue (principal); R10.9 Unspecified abdominal pain
CPT/HCPCS: 36415; 36430; 51701; 74177; 80053; 81001; 83690; 85025; 85610; 87086; 96374; 99284; P9060